=== PATIENT | male | born 1950 | race Caucasian/White ===

== ENCOUNTER 2020-12-04 13:13 | Inpatient (IN) | payer MEDICARE, OTHER ==
[~2020-12-04] VITALS: Ht 175.3 cm; Wt 64.4 kg
[2020-12-04] MEDS ORDERED: MIRT-93 PO (13:22)
[2020-12-04] MEDS ORDERED: RISP0.5T65 PO (13:22)
[2020-12-04] MEDS ORDERED: TAMS-3 PO (13:22)
[2020-12-04] MEDS ORDERED: MAG HYDROX/AL HYDROX/SIMETH 30 ML LIQUID UDC PO PRN (17:00)
[2020-12-04] MEDS ORDERED: LORAZEPAM 0.5 MG TABLET PO PRN (17:00)
[2020-12-04] MEDS ORDERED: ACETAMINOPHEN 325 MG TABLET PO PRN (17:00)
[2020-12-04] MEDS ORDERED: TEMAZEPAM 7.5 MG CAPSULE PO PRN (17:00)
[2020-12-04] MEDS ORDERED: MAGNESIUM HYDROXIDE 30 ML LIQUID UDC PO PRN (17:00)
[2020-12-04 20:06] VITALS: BP 136/84
[2020-12-05 07:30] VITALS: BP 121/74
[2020-12-05] MEDS ORDERED: INFLUENZA VACCINE 2021-2022 0.5 ML DISP.SYRIN IM ONE (09:00)
[2020-12-05] MEDS: risperiDONE 0.5 MG TABLET PO SCH ×2 (11:44→17:46)
[2020-12-05] MEDS: DIVALPROEX SPRINKLE 125 MG CAP.SPRINK PO SCH ×2 (13:47→17:46)
[2020-12-05 15:06] VITALS: BP 97/70
[2020-12-05 15:42] LABS: BILIRUBIN,TOTAL 0.6 mg/dL (0.2-1.0); CREATININE 0.8 mg/dL (0.6-1.3); POTASSIUM 3.9 mmol/L (3.5-5.1); TOTAL PROTEIN, SERUM 7.8 g/dL (6.4-8.2)
[2020-12-05 19:56] VITALS: BP 116/68
[2020-12-05] MEDS: TAMSULOSIN HCL 0.4 MG CAP.SR.24H PO SCH (20:21)
[2020-12-06 07:45] VITALS: BP_SYST 109; BP_SYST 141; BP_DIAS 68; BP_DIAS 86
[2020-12-06] MEDS: risperiDONE 0.5 MG TABLET PO SCH ×4 (08:38→20:29)
[2020-12-06] MEDS: DIVALPROEX SPRINKLE 125 MG CAP.SPRINK PO SCH ×3 (08:38→16:33)
[2020-12-06 17:14] VITALS: BP 144/78
[2020-12-06] MEDS: TAMSULOSIN HCL 0.4 MG CAP.SR.24H PO SCH (20:29)
[2020-12-06 21:06] VITALS: BP 116/78
[2020-12-07 07:53] VITALS: BP 104/70
[2020-12-07] MEDS: risperiDONE 0.5 MG TABLET PO SCH ×3 (08:44→16:26)
[2020-12-07] MEDS: DIVALPROEX SPRINKLE 125 MG CAP.SPRINK PO SCH ×3 (08:44→16:26)
[2020-12-07] MEDS: ENSURE ENLIVE (VAN) 240 ML LIQUID PO SCH ×2 (12:52→16:26)
[2020-12-07] MEDS ORDERED: DULO60CA45 PO (14:38)
[2020-12-07] MEDS ORDERED: GABA-532 PO (14:39)
[2020-12-07] MEDS ORDERED: ATOR40TA PO (14:39)
[2020-12-07] MEDS ORDERED: TRAZ-257 PO (14:40)
[2020-12-07] MEDS ORDERED: METH1TAB69 PO (14:40)
[2020-12-07 16:00] VITALS: BP 106/69
[2020-12-07 20:00] VITALS: BP 111/70
[2020-12-07] MEDS: TAMSULOSIN HCL 0.4 MG CAP.SR.24H PO SCH (20:19)
[2020-12-07] MEDS: ATORVASTATIN 40 MG TABLET PO SCH (20:19)
[2020-12-08 07:30] VITALS: BP 114/72
[2020-12-08] MEDS: DIVALPROEX SPRINKLE 125 MG CAP.SPRINK PO SCH ×3 (09:12→17:02)
[2020-12-08] MEDS: risperiDONE 0.5 MG TABLET PO SCH ×3 (09:12→17:02)
[2020-12-08] MEDS: ENSURE ENLIVE (VAN) 240 ML LIQUID PO SCH ×3 (09:13→17:38)
[2020-12-08 16:00] VITALS: BP 117/81
[2020-12-08] MEDS: TAMSULOSIN HCL 0.4 MG CAP.SR.24H PO SCH (20:17)
[2020-12-08] MEDS: ATORVASTATIN 40 MG TABLET PO SCH (20:17)
[2020-12-08 20:18] VITALS: BP 142/86
[2020-12-09 07:30] VITALS: BP 122/94
[2020-12-09] MEDS: DIVALPROEX SPRINKLE 125 MG CAP.SPRINK PO SCH ×3 (08:43→16:49)
[2020-12-09] MEDS: risperiDONE 0.5 MG TABLET PO SCH ×3 (08:44→16:49)
[2020-12-09] MEDS: ENSURE ENLIVE (VAN) 240 ML LIQUID PO SCH ×3 (08:51→17:21)
[2020-12-09 16:00] VITALS: BP 114/68
[2020-12-09 20:00] VITALS: BP 120/78
[2020-12-09] MEDS: ATORVASTATIN 40 MG TABLET PO SCH ×2 (20:52→21:00)
[2020-12-09] MEDS: TAMSULOSIN HCL 0.4 MG CAP.SR.24H PO SCH ×2 (20:53→21:00)
[2020-12-10 07:30] VITALS: BP 109/79
[2020-12-10] MEDS: risperiDONE 0.5 MG TABLET PO SCH ×3 (08:11→16:09)
[2020-12-10] MEDS: ENSURE ENLIVE (VAN) 240 ML LIQUID PO SCH ×3 (08:11→18:10)
[2020-12-10] MEDS: DIVALPROEX SPRINKLE 125 MG CAP.SPRINK PO SCH ×3 (08:11→16:09)
[2020-12-10 16:00] VITALS: BP 127/78
[2020-12-10 20:00] VITALS: BP 123/76
[2020-12-10] MEDS: TAMSULOSIN HCL 0.4 MG CAP.SR.24H PO SCH (21:28)
[2020-12-10] MEDS: ATORVASTATIN 10 MG TABLET PO SCH (21:40)
[2020-12-11 08:08] LABS: HEMATOCRIT 35.5 % (36.7-47.1); MEAN CORPUSCULAR HEMOGLOBIN 34.5 uug (23.8-33.4); MEAN CORPUSCULAR VOLUME 100.7 fL (73.0-96.2); PLATELET COUNT (AUTO) 391 K/uL (152-348)
[2020-12-11 08:30] VITALS: BP 106/72
[2020-12-11 08:38] LABS: THYROID STIMULATING HORMONE 1.398 mIU/mL (0.358-3.740)
[2020-12-11] MEDS: DIVALPROEX SPRINKLE 125 MG CAP.SPRINK PO SCH ×4 (08:51→20:06)
[2020-12-11] MEDS: risperiDONE 0.5 MG TABLET PO SCH ×3 (08:51→16:56)
[2020-12-11 09:08] LABS: BILIRUBIN,TOTAL 0.7 mg/dL (0.2-1.0); CREATININE 0.7 mg/dL (0.6-1.3); MAGNESIUM 2.4 mg/dL (1.8-2.4); PHOSPHOROUS 3.6 mg/dL (2.5-4.9); POTASSIUM 4.2 mmol/L (3.5-5.1)
[2020-12-11] MEDS: ENSURE ENLIVE (VAN) 240 ML LIQUID PO SCH ×3 (09:35→17:00)
[2020-12-11 16:14] VITALS: BP 112/72
[2020-12-11 20:00] VITALS: BP 128/85
[2020-12-11] MEDS: TAMSULOSIN HCL 0.4 MG CAP.SR.24H PO SCH (20:06)
[2020-12-11] MEDS: ATORVASTATIN 10 MG TABLET PO SCH (20:06)
[2020-12-12 07:30] VITALS: BP 107/71
[2020-12-12] MEDS: risperiDONE 0.5 MG TABLET PO SCH ×3 (08:20→16:44)
[2020-12-12] MEDS: DIVALPROEX SPRINKLE 125 MG CAP.SPRINK PO SCH ×4 (08:20→20:12)
[2020-12-12] MEDS: ENSURE ENLIVE (VAN) 240 ML LIQUID PO SCH ×3 (09:00→18:36)
[2020-12-12] MEDS: MINERAL OIL/PETROLATUM,WHITE 57 GM TUBE TOP SCH (11:48)
[2020-12-12 15:16] VITALS: BP 104/70
[2020-12-12 20:07] VITALS: BP 107/70
[2020-12-12] MEDS: TAMSULOSIN HCL 0.4 MG CAP.SR.24H PO SCH (20:12)
[2020-12-12] MEDS: ATORVASTATIN 10 MG TABLET PO SCH (20:12)
[2020-12-13 07:30] VITALS: BP 133/75
[2020-12-13] MEDS: risperiDONE 0.5 MG TABLET PO SCH ×3 (08:02→17:11)
[2020-12-13] MEDS: MINERAL OIL/PETROLATUM,WHITE 57 GM TUBE TOP SCH (08:02)
[2020-12-13] MEDS: DIVALPROEX SPRINKLE 125 MG CAP.SPRINK PO SCH ×4 (08:02→20:46)
[2020-12-13] MEDS: ENSURE ENLIVE (VAN) 240 ML LIQUID PO SCH ×3 (08:08→17:59)
[2020-12-13 16:00] VITALS: BP 102/62
[2020-12-13 20:13] VITALS: BP 108/66
[2020-12-13] MEDS: ATORVASTATIN 10 MG TABLET PO SCH (20:46)
[2020-12-13] MEDS: TAMSULOSIN HCL 0.4 MG CAP.SR.24H PO SCH (20:46)
[2020-12-14 07:51] VITALS: BP 114/69
[2020-12-14] MEDS: DIVALPROEX SPRINKLE 125 MG CAP.SPRINK PO SCH ×4 (09:24→20:27)
[2020-12-14] MEDS: risperiDONE 0.5 MG TABLET PO SCH ×3 (09:25→17:30)
[2020-12-14] MEDS: ENSURE ENLIVE (VAN) 240 ML LIQUID PO SCH ×3 (09:25→17:30)
[2020-12-14] MEDS: MINERAL OIL/PETROLATUM,WHITE 57 GM TUBE TOP SCH (09:25)
[2020-12-14 16:11] VITALS: BP 118/73
[2020-12-14 20:00] VITALS: BP 99/67
[2020-12-14] MEDS: ATORVASTATIN 10 MG TABLET PO SCH (20:27)
[2020-12-14] MEDS: TAMSULOSIN HCL 0.4 MG CAP.SR.24H PO SCH (20:27)
[2020-12-15 07:30] VITALS: BP_SYST 103; BP_SYST 106; BP_DIAS 64; BP_DIAS 65
[2020-12-15 07:38] LABS: HEMATOCRIT 35.3 % (36.7-47.1); MEAN CORPUSCULAR HEMOGLOBIN 34.8 uug (23.8-33.4); MEAN CORPUSCULAR VOLUME 100.8 fL (73.0-96.2); PLATELET COUNT (AUTO) 382 K/uL (152-348)
[2020-12-15 08:02] LABS: BILIRUBIN,TOTAL 0.6 mg/dL (0.2-1.0); CREATININE 0.7 mg/dL (0.6-1.3); POTASSIUM 4.1 mmol/L (3.5-5.1); TOTAL PROTEIN, SERUM 6.7 g/dL (6.4-8.2)
[2020-12-15] MEDS: risperiDONE 0.5 MG TABLET PO SCH ×2 (08:13→12:29)
[2020-12-15] MEDS: DIVALPROEX SPRINKLE 125 MG CAP.SPRINK PO SCH ×2 (08:13→12:29)
[2020-12-15] MEDS: MINERAL OIL/PETROLATUM,WHITE 57 GM TUBE TOP SCH (08:14)
[2020-12-15] MEDS: ENSURE ENLIVE (VAN) 240 ML LIQUID PO SCH ×2 (08:18→12:29)
== END 2020-12-15 13:15 | DRG 885 ==
LOC: ER 13:13 → GPS 16:47
PROVIDERS: ADMIT Psychiatry & Neurology Psychosomatic Medicine; ATTEND Internal Medicine
DX: F33.9 Major depressive disorder, recurrent, unspecified (principal); F41.9 Anxiety disorder, unspecified; N40.0 Benign prostatic hyperplasia without lower urinary tract symptoms; D53.9 Nutritional anemia, unspecified; E78.5 Hyperlipidemia, unspecified; Z73.6 Limitation of activities due to disability; F03.90 Unspecified dementia, unspecified severity, without behavioral disturbance, psychotic disturbance, mood disturbance, and anxiety; R53.1 Weakness; S30.810A Abrasion of lower back and pelvis, initial encounter; X58.XXXA Exposure to other specified factors, initial encounter; Y93.9 Activity, unspecified; Y92.89 Other specified places as the place of occurrence of the external cause; Z20.822 Contact with and (suspected) exposure to COVID-19
CPT/HCPCS: 36415; 80164; 83735; 84100; 84443; 85025; 90686; 97161; A4663; A6209